=== PATIENT | male | born 1975 | race Two or more races ===

== ENCOUNTER 2024-09-04 04:53 | Emergency (ER) | payer OTHER ==
[~2024-09-04] VITALS: Ht 172.7 cm; Wt 86.2 kg
[2024-09-04 05:00] VITALS: BP 142/85; O2SAT 96
[2024-09-04] MEDS ORDERED: LIDOCAINE HCL 1% 10ML VIAL ONE (08:44)
[2024-09-04] MEDS ORDERED: CEFTRIAXONE SODIUM 1,000 MG VIAL ONE (08:44)
[2024-09-04 09:30] LABS: HEMOGLOBIN 17.3 g/dL (13-16.00); MEAN CELL VOLUME 92.4 fL (80.0-100.00); MEAN CORPUSCULAR HEMOGLOBIN 31.9 pg (27.00-32.0); MEAN CORPUSCULAR HGB CONC 34.6 g/dl (32.0-36.0); PLATELET COUNT 305 K/uL (150-450); RED BLOOD COUNT 5.41 M/uL (4.00-6.00); RED CELL DISTRIBUTION WIDTH 13.3 % (11.5-14.5)
[2024-09-04 09:35] LABS: ERYTHROCYTE SEDIMENTATION RATE 2 mm/hr
[2024-09-04 10:05] LABS: ALBUMIN 4.7 gm/dL (3.4-5.0); ALKALINE PHOSPHATASE 112 U/L (50-136); ALT/SGPT 51 U/L (12-78); ANION GAP 7 (10.0-20.0); AST/SGOT 24 U/L (15-37); BILIRUBIN TOTAL 1.16 mg/dL (0.3-1.2); BLOOD UREA NITROGEN 17 mg/dL (7-18); BUN CREA RATIO 17 (7.0-25.0); CALCIUM 9.8 mg/dL (8.5-10.1); CARBON DIOXIDE 29 mEq/L (21-32); CHLORIDE 104 mmol/L (98-107); CREATININE SERUM 1.01 mg/dL (0.70-1.30); GFR 79.18; GLOBULINA 4.2 G/DL (2.4-3.5); GLUCOSE FASTING 96 mg/dL (65-100); OSMOLALITY SERUM 273 MOSM/KG (275-295); POTASSIUM 4.32 mEq/L (3.5-5.1); SODIUM 136 mmol/L (136-145); TOTAL PROTEIN 8.9 gm/dL (6.4-8.2)
[2024-09-04 10:30] LABS: C-REACTIVE PROTEIN < 0.29 MG/DL (0.00-0.29)
== END 2024-09-04 12:45 | disposition home or self-care (01) ==
LOC: ER 04:55
PROVIDERS: General Practice
DX: M25.562 Pain in left knee (principal)